=== PATIENT | male | born 1980 | race Caucasian/White ===

== ENCOUNTER 2018-10-03 07:10 | Day surgery (SDC) | payer BC ==
[~2018-10-03] VITALS: Ht 172.7 cm; Wt 72.1 kg
[~2018-10-03 07:10] MED LIST: ADACEL IM; ANUCORT-HC25 MG PR
--- NOTE | 2018-10-03 08:39 | NUR ---
10/03/18 0839 Lisandra Allen 0814 PATIENT ARRIVES TO PACU SLEEPING, OPENS EYES WITH VERBAL STIMULI. RESP EVEN AND UNLABORED.
--- NOTE | 2018-10-03 10:56 | NUR ---
PT APPEARS TO BE RESTING COMFORTABLY-ALERT AND ORIENTED. HAD JUST A MOMENT WITH PT, OR STAFF WAITING. GAVE ENCOURAGEMENT AND BLESSING-HE THANKED ME. WILL FOLLOW NEEDED
--- NOTE | 2018-10-07 11:41 | OR ---
[facility] [address], [place] [address] Signed DATE OF OPERATION: 10/03/2018 SURGEON: Ilana Head MD PREOPERATIVE DIAGNOSIS: History of rectal bleeding with successful hemorrhoidal ligation. POSTOPERATIVE DIAGNOSES: 1. Internal hemorrhoids. 2. Low rectal polyp (excised). PROCEDURE: Colonoscopy with cold morcellation polypectomy x1. ANESTHESIA: Intravenous sedation, fentanyl 150 mcg, and versed 7 mg. INDICATION: A 38-year-old white man is a patient of Dr. Fried, referred for rectal bleeding. Anorectal examination showed internal hemorrhoidal changes for which hemorrhoidal banding was undertaken x2. This allowed for cessation of the bleeding. He does have occasional protrusion of hemorrhoids without current bleeding at this time. He is admitted to undergo colonoscopy to assess. There is no other cause of his bleeding, specifically polyps or cancer, or colitis. He understands the risks of bleeding, infection, and perforation related to colonoscopy and wished to proceed. FINDINGS: The prep was excellent. Colonoscopy was undertaken of the right colon with distant visualization of the cecum. There was no sign of abnormality more proximally. There were no diverticula and no signs of colitis. He did have a fair amount of discomfort for which complete intubation of the cecum was not forthcoming. Retroflexed view did confirm internal hemorrhoidal changes as well as a small polyp. The polyp was excised completely. DESCRIPTION OF PROCEDURE: The patient was brought to the endoscopy suite and placed in lateral decubitus position given intravenous sedation to the point of slurred speech and nystagmus. Digital rectal examination was normal. Electronically Signed By: ILANA HEAD MD 10/07/18 1141 PATIENT NAME: COLT WALKER OPERATIVE REPORT DATE OF : 84 REPORT #: [id number] PHYSICIAN: ILANA HEAD MD PCP: GRACE FRIED MD REPORT IS CONFIDENTIAL AND NOT TO BE RELEASED WITHOUT AUTHORIZATION [facility] [address], [place] [address] Signed An Olympus video colonoscope was passed in the rectum and manipulated throughout the colon. Passage beyond the hepatic flexure was somewhat uncomfortable. Additional sedation was given. Scope was passed to the right colon. The distant visualization of the cecum due to discomfort. The scope was not advanced further and then withdrawn. Careful withdrawal of scope showed no sign of diverticular formation or colitis. Retroflexed view of the rectum confirmed internal hemorrhoidal changes as well as a small polyp probably hyperplastic. This was excised with cold morcellation technique. The scope was straightened, withdrawn, and removed. The patient was taken to recovery room in good condition. CONCLUDING DIAGNOSIS: Bleeding probably related to hemorrhoids. Still has persistent internal hemorrhoids, which protrude likely considered grade 3. Small polyp likely hyperplastic. PLAN: He will see us back in the office in 4 to 6 weeks and we will assess whether or not he wishes to pursue hemorrhoidectomy or other means of hemorrhoid management. In the meantime, recommend Citrucel 1 tablespoon daily. MD MÓNICA Momin/SHIVAM /[id number] cc: Grace Fried MD Copies: GRACE FRIED MD ~ Electronically Signed By: ILANA HEAD MD 10/07/18 1141 PATIENT NAME: COLT WALKER OPERATIVE REPORT DATE OF : 84 REPORT #: [id number] PHYSICIAN: ILANA HEAD MD PCP: GRACE FRIED MD REPORT IS CONFIDENTIAL AND NOT TO BE RELEASED WITHOUT AUTHORIZATION
== END 2018-10-03 10:00 | disposition home or self-care (01) ==
LOC: OPS 07:10 → DS 07:10 → OPS 08:30
PROVIDERS: Surgery
PROC: 0DBP8ZZ Excision of Rectum, Via Natural or Artificial Opening Endoscopic (ICD-10-PCS; principal; 2018-10-03 08:30)
DX: K62.1 Rectal polyp (principal); K64.8 Other hemorrhoids; Z88.5 Allergy status to narcotic agent
CPT/HCPCS: 99153; G0500; J2250; J3010; J7120